=== PATIENT | female | born 1955 | race African-American/Black ===

== ENCOUNTER 2018-07-23 17:20 | Emergency (ER) | payer BC, OTHER ==
[~2018-07-23] VITALS: Ht 170.2 cm; Wt 98.0 kg
[2018-07-23] MEDS ORDERED: KETOROLAC 60MG/2ML VIAL IM STA (20:39)
[2018-07-23 21:58] VITALS: BP 152/71
== END 2018-07-23 21:59 | disposition home or self-care (01) ==
LOC: ER 17:20
DX: G89.29 Other chronic pain (principal); M25.562 Pain in left knee; M25.561 Pain in right knee; M17.0 Bilateral primary osteoarthritis of knee; F41.9 Anxiety disorder, unspecified; F32.9 Major depressive disorder, single episode, unspecified; I10 Essential (primary) hypertension
CPT/HCPCS: 96372; 99283; J1885